=== PATIENT | male | born 1995 | race Caucasian/White ===

== ENCOUNTER 2017-04-18 19:44 | Observation (INO) | payer BC ==
[2017-04-18] MEDS ORDERED: ONDANSETRON 4 MG TAB.RAPDIS PO ONE (20:53)
--- NOTE | 2017-04-18 20:54 | ER Document Report ---
ED Medical Screen (RME) - General Chief Complaint: Abdominal Pain Stated Complaint: ABDOMINAL PAIN Time Seen by Provider: 04/18/17 20:52 Notes: 21-year-old male, chief complaint of abdominal pain in the right side seems to be in both the upper and lower abdomen, worsening since this morning, having sharp pains with developing persistent nausea, states he tried to eat once and vomited. Denies flank pain, fever, or any other symptoms. No past medical history or surgeries. Got back from [place] 2 weeks ago. Denies alcohol. TRAVEL OUTSIDE OF THE [place] IN LAST 30 DAYS: No - Related Data Allergies/Adverse Reactions: No Known Allergies Allergy (Unverified 04/18/17 20:17) Past Medical History Renal/ Medical History: Denies: Hx Peritoneal Dialysis Physical Exam - Vital signs Vitals: Temp Pulse BP Pulse Ox 97.5 F 61 120/77 100 04/18/17 20:17 04/18/17 20:17 04/18/17 20:17 04/18/17 20:17 - Abdominal Tenderness: Tender - tender in both RUQ and RLQ with wincing, limited by sitting exam - Back Back: No: Tender, CVA tenderness Course - Vital Signs Vital signs: Temp Pulse Resp BP Pulse Ox 97.5 F 61 120/77 100 04/18/17 20:17 04/18/17 20:17 04/18/17 20:17 04/18/17 20:17
[2017-04-18 21:37] LABS: APPEARANCE,URINE SLIGHTLY-CLOUDY; BILIRUBIN,URINE NEGATIVE (NEGATIVE); GLUCOSE, URINE NEGATIVE (NEGATIVE); KETONES,URINE 80 mg/dL (NEGATIVE); LEUKOCYTE ESTERASE,URINE NEGATIVE (NEGATIVE); NITRITE,URINE NEGATIVE (NEGATIVE); PROTEIN,URINE 30 mg/dL (NEGATIVE); URINE SPECIFIC GRAVITY 1.029; UROBILINOGEN,URINE NEGATIVE mg/dL (<2.0)
[2017-04-18 22:20] LABS: ALANINE AMINOTRANSFERASE 34 U/L (21-72); ALBUMIN 4.8 g/dL (3.5-5.0); ALKALINE PHOSPHATASE 73 U/L (38-126); ANION GAP 13 (5-19); ASPARTATE AMINO TRANSFERASE 30 U/L (17-59); BILIRUBIN,DIRECT 0.2 mg/dL (0.0-0.4); BILIRUBIN,TOTAL 1.3 mg/dL (0.2-1.3); BLOOD UREA NITROGEN 14 mg/dL (7-20); CALCIUM 9.5 mg/dL (8.4-10.2); CARBON DIOXIDE 22 mmol/L (22-30); CHLORIDE 100 mmol/L (98-107); CREATININE RESULT 0.65 mg/dL (0.52-1.25); GLUCOSE 124 mg/dL (75-110); TOTAL PROTEIN 7.9 g/dL (6.3-8.2)
[2017-04-18 22:21] LABS: ABSOLUTE LYMPHOCYTES (AUTO) 0.8 10^3/uL (0.5-4.7); ABSOLUTE MONOCYTES (AUTO) 0.4 10^3/uL (0.1-1.4); ABSOLUTE NEUT (AUTO) 9.6 10^3/uL (1.7-8.2); BASOPHILS % (AUTO) 0.3 % (0-2); HEMATOCRIT 43.3 % (37.9-51.0); HEMOGLOBIN 14.7 g/dL (13.5-17.0); HGB HCT DIFFERENCE 0.8; LYMPHOCYTES % (AUTO) 7.2 % (13-45); MEAN CORPUSCULAR HEMOGLOBIN 30.6 pg (27.0-33.4); MEAN CORPUSCULAR VOLUME 90 fl (80-97); MONOCYTES % (AUTO) 4.1 % (3-13); RED BLOOD COUNT 4.82 10^6/uL (4.35-5.55); RED CELL DISTRIBUTION WIDTH 12.9 % (11.5-14.0); SEGMENTED NEUTROPHILS % (AUTO) 88.4 % (42-78); WHITE BLOOD COUNT 10.9 10^3/uL (4.0-10.5)
--- NOTE | 2017-04-18 22:44 | ER Document Report ---
ED General - General Chief Complaint: Abdominal Pain Stated Complaint: ABDOMINAL PAIN Time Seen by Provider: 04/18/17 20:52 Notes: Patient is a 21-year-old male without past medical history, no prior surgical history who presents with 16 hours of progressively worsening abdominal pain with associated vomiting. Patient states that earlier this morning he developed generalized abdominal discomfort which he described as a dull, constant, cramping pain. States that over the course of several hours it became more localized to right lower quadrant and now is only located there. He has had multiple episodes of nonbilious emesis today but notes that he has been able to tolerate water. No known sick contacts. He denies any diarrhea. No history of similar symptoms in the past. He has not seen his primary care doctor regarding today's concerns. TRAVEL OUTSIDE OF THE [place] IN LAST 30 DAYS: No - Related Data Allergies/Adverse Reactions: No Known Allergies Allergy (Unverified 04/18/17 20:17) Home Medications: Current Home Medications No Home Medications 04/19/17 [History] Past Medical History - General Information source: Patient - Social History Smoking Status: Never Smoker Frequency of alcohol use: Occasional Drug Abuse: None Lives with: Family Family History: Reviewed & Not Pertinent Patient has suicidal ideation: No Patient has homicidal ideation: No Renal/ Medical History: Denies: Hx Peritoneal Dialysis Surgical Hx: Negative Review of Systems - Review of Systems Notes: Constitutional: Negative for fever. HENT: Negative for sore throat. Eyes: Negative for visual changes. Cardiovascular: Negative for chest pain. Respiratory: Negative for shortness of breath. Gastrointestinal: Positive for abdominal pain and vomiting Genitourinary: Negative for dysuria. Musculoskeletal: Negative for back pain. Skin: Negative for rash. Neurological: Negative for headaches, weakness or numbness. 10 point ROS negative except as marked above and in HPI. Physical Exam - Vital signs Vitals: Temp Pulse BP Pulse Ox 97.5 F 61 120/77 100 04/18/17 20:17 04/18/17 20:17 04/18/17 20:17 04/18/17 20:17 Interpretation: Normal Notes: PHYSICAL EXAMINATION: GENERAL: Well-appearing, well-nourished and in no acute distress. HEAD: Atraumatic, normocephalic. EYES: Pupils equal round and reactive to light, extraocular movements intact, sclera anicteric, conjunctiva are normal. ENT: nares patent, oropharynx clear without exudates. Moist mucous membranes. NECK: Normal range of motion, supple without lymphadenopathy LUNGS: Breath sounds clear to auscultation bilaterally and equal. No wheezes rales or rhonchi. HEART: Regular rate and rhythm without murmurs ABDOMEN: Soft, focal tenderness of the right lower quadrant without rebound or guarding. EXTREMITIES: Normal range of motion, no pitting or edema. No cyanosis. NEUROLOGICAL: No focal neurological deficits. Moves all extremities spontaneously and on command. PSYCH: Normal mood, normal affect. SKIN: Warm, Dry, normal turgor, no rashes or lesions noted. Course - Re-evaluation Re-evalutation: 04/18/17 22:42 Patient presents with generalized abdominal pain that has now become more focal right lower quadrant with associated vomiting Does show some mild right lower quadrant abdominal tenderness but no rebound or guarding. Abdomen is soft, not rigid. Testicular exam is normal without evidence of an acute testicular torsion, epididymitis or orchitis. Laboratories show a mild leukocytosis but are otherwise unremarkable. No significant flank tenderness. Clinical history is not consistent with acute pyelonephritis, nephrolithiasis, bowel perforation , mesenteric ischemia, bowel obstruction. I have a mildly elevated concern for possible acute appendicitis. I discussed proceeding with a CT scan at this time with the patient and he has agreed and verbalized an understanding of radiation exposure risks. 04/19/17 00:11 CT scan does demonstrate findings consistent with acute appendicitis although is not clearly visualized the appendix. However there is a small amount of free fluid in the lower abdomen as well as inflammatory change around the cecum. Patient remains with persistent right lower quadrant pain in the context of the CT scan this makes the diagnosis of acute appendicitis highly probable. I discussed this case with the surgeon precision mechanical instrument maker Dr. Massey who is agreed to admit the patient and taken to the operating room in the morning. He will be started on IV Zosyn, maintenance fluids and has been made n.p.o. - Vital Signs Vital signs: Temp Pulse Resp BP Pulse Ox 97.9 F 60 17 120/71 100 04/19/17 02:47 04/19/17 02:47 04/19/17 02:47 04/19/17 02:47 04/19/17 02:47 - Laboratory Result Diagrams: 04/18/17 22:11 04/18/17 21:50 Laboratory results interpreted by me: 04/18/17 04/18/17 04/18/17 21:07 21:50 22:11 WBC 10.9 H Seg Neutrophils % 88.4 H Lymphocytes % 7.2 L Absolute Neutrophils 9.6 H Sodium 135.0 L Glucose 124 H Urine Protein 30 H Urine Ketones 80 H - Diagnostic Test Radiology reviewed: Reports reviewed Discharge - Discharge Clinical Impression: Acute appendicitis Qualifiers: Acute appendicitis type: with localized peritonitis Qualified Code(s): K35.3 - Acute appendicitis with localized peritonitis Disposition: ADMITTED OBSERVATION Admitting Provider: Surgicalist - [facility] Unit Admitted: Surgical Floor
--- NOTE | 2017-04-18 23:44 | RADIOLOGY REPORT (SQ) ---
EXAM DESCRIPTION: CT ABD/PELVIS WITH IV ONLY COMPLETED DATE/TIME: 04/18/2017 11:16 pm REASON FOR STUDY: eval appendicitis COMPARISON: None. TECHNIQUE: CT scan of the abdomen and pelvis performed using helical scanning technique with dynamic intravenous contrast injection. No oral contrast. Images reviewed with lung, soft tissue, and bone windows. Reconstructed coronal and sagittal MPR images reviewed. Delayed images for evaluation of the urinary system also acquired. All images stored on PACS. All CT scanners at this facility use dose modulation, iterative reconstruction, and/or weight based d osing when appropriate to reduce radiation dose to as low as reasonably achievable (ALARA). [facility]: Dose Right [facility]: CareDose [facility]: Dose Right [facility]: Teradose 4D [facility]: LucidEra CONTRAST TYPE AND DOSE: contrast/concentration: Isovue 370.00 mg/ml; Total Contrast Delivered: 70.0 ml; Total Saline Delivered: 66.0 ml RENAL FUNCTION: GFR > 60. RADIATION DOSE: 10.91. LIMITATIONS: None. FINDINGS: LOWER CHEST: No significant findings. No nodules or infiltrates. LIVER: Normal size. No dilated ducts. Small hepatic cyst. SPLEEN: Normal size. No focal lesions. PANCREAS: No masses. No significant calcifications. No adjacent inflammation or peripancreatic fluid collections. Pancreatic duct not dilated. GALLBLADDER: No identified stones by CT criteria. No inflammatory changes to suggest cholecystitis. ADRENAL GLANDS: No significant masses or asymmetry. RIGHT KIDNEY AND URETER: No solid masses. No significant calcifications. No hydronephrosis or hyd roureter. LEFT KIDNEY AND URETER: No solid masses. No significant calcifications. No hydronephrosis or hydr oureter. AORTA AND VESSELS: No aneurysm. No dissection. Renal arteries, SMA, celiac without stenosis. RETROPERITONEUM: No retroperitoneal adenopathy, hemorrhage or masses. BOWEL AND PERITONEAL CAVITY: Moderate Right lower quadrant inflammatory changes with a small amount o f free fluid. APPENDIX: Not identified. PELVIS: Small amount of free fluid. No mass. Normal bladder. ABDOMINAL WALL: No masses. No hernias. BONES: No significant or acute findings. OTHER: No other significant finding. IMPRESSION: Moderate Right lower quadrant inflammatory changes around the base of the cecum with a s mall amount of free fluid noted. The appendix is not clearly identified. These findings could refle ct acute appendicitis, if there is high clinical suspicion consider surgical consultation. TECHNICAL DOCUMENTATION: JOB ID: [id number] Quality ID # [id number]: Final reports with documentation of one or more dose reduction techniques (e.g., Au tomated exposure control, adjustment of the mA and/or kV according to patient size, use of iterative reconstruction technique) 2010 [employer]- All Rights Reserved
[2017-04-19] MEDS ORDERED: PIPERACILLIN/TAZOBACTAM 3.375 GM VIAL IV ONE
[2017-04-19] MEDS ORDERED: NORMAL SALINE 1000 ML 1,000 ML IV ONE
[2017-04-19] MEDS: MORPHINE SULFATE 10 MG/ML INJ IV PRN ×3 (01:18→06:47)
--- NOTE | 2017-04-19 06:33 | HISTORY AND PHYSICAL E ---
History and Physical NAME: REID CHAN : 1995 AGE: 21Y ADMITTED: 04/19/2017 ROOM: 210 CHIEF COMPLAINT: Right lower quadrant pains. HISTORY OF PRESENT ILLNESS: This is a 21-year-old male who complained of vague epigastric pains when waking up yesterday morning at 8:00 a.m. This was associated with nausea and vomiting. Around 5:00 in the afternoon yesterday, pains localized in the right lower quadrant, and went to the emergency room. He had a CAT scan of the abdomen with IV contrast but no p.o. contrast which showed inflammation around the area of the cecum with fluid in the pelvis, but appendix was not visualized. His white count is slightly elevated at 10.9. PAST HISTORY: Is unremarkable. No previous operations. No medical issues. SOCIAL HISTORY: Denies smoking. Admits to drinking socially. No drug use. FAMILY HISTORY: Noncontributory. REVIEW OF SYSTEMS: As in HPI. He denies any sore throat, fever, chills, headaches, chest pains, shortness of breath, diarrhea, constipation, nor dysuria. Rest of the systems unremarkable. ALLERGIES: No known. PHYSICAL EXAMINATION: GENERAL: Well-developed, well-nourished 21-year-old male, alert and oriented, complaining of right lower quadrant pains. HEENT: Neck is supple, no thyromegaly. LUNGS: Were clear. HEART: Regular sinus rhythm. ABDOMEN: Is soft, with tenderness in the right lower quadrant with rebound. EXTREMITIES: No edema. IMPRESSION: ACUTE APPENDICITIS. PLAN: 1. The patient started on IV antibiotics and hydration. 2. Laparoscopic appendectomy today by Dr. Harper. DICTATING PHYSICIAN: KARISHMA HUGHES M.D. [id number] PHY#: [id number] ID: [id number] JOB#: [id number] ACCT: [id number] cc:NO Brandi FELDER
[2017-04-19] MEDS ORDERED: BUPIVACAINE HCL 0.25 % INJ/PF (2.5 MG/1 ML) 30 ML VIAL ONE (07:19)
[2017-04-19] MEDS ORDERED: ACETAMINOPHEN 100 ML IV ONE (08:29)
[2017-04-19] MEDS ORDERED: FENTANYL CITRATE INJ/PF 250 MCG/5 ML AMPULE ONE (08:29)
[2017-04-19] MEDS ORDERED: MIDAZOLAM 2 MG/2 ML INJ ONE (08:29)
[2017-04-19] MEDS ORDERED: PROPOFOL INJ 200 MG/20 ML VIAL IV ONE (08:29)
[2017-04-19] MEDS ORDERED: MORPHINE SULFATE 10 MG/ML INJ ONE (08:30)
[2017-04-19] MEDS ORDERED: PIPERACILLIN SODIUM/TAZOBACTAM 3.375 GM in NORMAL SALINE 100 ML IV ONE (09:00)
[2017-04-19] MEDS ORDERED: MORPHINE SULFATE 10 MG/ML INJ IV PRN (09:46)
[2017-04-19] MEDS ORDERED: ONDANSETRON HCL INJ/PF 4 MG/2 ML SDV IV PRN (09:46)
--- NOTE | 2017-04-19 09:51 | Operative Report ---
Operative Report DATE OF SURGERY: 04/19/17 PREOPERATIVE DIAGNOSIS: Acute appendicitis POSTOPERATIVE DIAGNOSIS: Same with suppurative appendicitis OPERATION: Laparoscopic appendectomy SURGEON: JULIETTE IVEY ANESTHESIA: GA TISSUE REMOVED OR ALTERED: 1 appendix with contents COMPLICATIONS: None ESTIMATED BLOOD LOSS: 10 cc INTRAOPERATIVE FINDINGS: See below PROCEDURE: The patient was taken to the preop holding area the main operating room where general anesthesia was induced. The patient voided on-call to OR. The abdomen was exposed, prepped and draped in sterile fashion and several laparoscopic appendectomy Surgical plan and surgical timeout conducted. Skin was anesthetized at the supraumbilical area with quarter percent Marcaine. A small curvilinear incision was made at the 12 o'clock position of the umbilicus. Veress needle was inserted into the peritoneal cavity and pneumoperitoneum established. Veress needle was removed, 5 mm ports inserted a flexible scope was inserted. Under direct visualization 2 additional ports placed one 5 mm suprapubic position and a 12 mm in the left lower quadrant. Inspection of peritoneal cavity revealed no evidence of bleeding or visceral injury Inspection peritoneal cavity revealed cloudy yellow green purulent discharge in the pelvis. The appendix was acutely inflamed, with early separation. There was no phlegmon, perforation or fecal contamination. Photos were taken. The appendix was grasped and elevated into the preperitoneal space. The posterior inferior attachments were taken down bluntly. A suitable site for opening of the mesoappendix just adjacent to the base of the appendix was identified and his opening created with a dissector. We then brought onto the field a 45 mm Endo stapler and divided the appendix at its base with a single firing, blue load. The appendix is now suspended solely by the mesial appendix. Second firing of the Endo IDALIA stapler was performed across the mesoappendix thereby freeing up the appendix in its entirety. Staple was removed, and an Endobag placed a 12 mm port. Appendix was placed into the bag and the appendix brought onto the patient's of the pathology permanent analysis. Careful inspection of the staple line showed some bleeding which required clip placement. Once this was controlled, we felt the operation was complete. Sponge and counts correct. The pelvis was irrigated out of the purulent fluid and all ports removed under direct visualization. Peritoneum was evacuated and all wounds closed with 0 Vicryl 3-0 Vicryl benzoin Steri-Strips. Postop procedure well, extubated and taken recovery in stable condition.
[2017-04-19] MEDS ORDERED: NEOSTIGMINE METHYLSULFATE 10 MG/10 ML VIAL ONE (11:45)
[2017-04-19] MEDS ORDERED: LIDOCAINE 2% INJ-PF (20 MG/ML) 10 ML AMPUL ONE (11:45)
[2017-04-19] MEDS ORDERED: METOCLOPRAMIDE HCL INJ/PF 10 MG/2 ML SDV ONE (11:45)
[2017-04-19] MEDS ORDERED: DEXAMETHASONE SOD PHOSPHATE INJ 4 MG/1 ML VIAL ONE (11:45)
[2017-04-19] MEDS ORDERED: SUCCINYLCHOLINE CHLORIDE INJ 200 MG/10 ML VIAL ONE (11:45)
[2017-04-19] MEDS ORDERED: ONDANSETRON HCL INJ/PF 4 MG/2 ML SDV ONE (11:45)
[2017-04-19] MEDS ORDERED: ROCURONIUM BROMIDE INJ 50 MG/5 ML VIAL IV ONE (11:45)
[2017-04-19] MEDS ORDERED: GLYCOPYRROLATE INJ 0.4 MG/2 ML VIAL ONE (11:45)
[2017-04-20 08:45] VITALS: BP 120/71
--- NOTE | 2017-04-20 09:18 | DISCHARGE SUMMARY E ---
Discharge Summary NAME: REID CHAN : 1995 AGE: 21Y ADMITTED: 04/19/2017 DISCHARGED: 04/20/2017 PROCEDURE DONE: Laparoscopic appendectomy for acute appendicitis done by Dr. Harper on 04/19/2017. HOSPITAL COURSE: Patient admitted for about 24 hours of abdominal pain and a CAT scan showed acute appendicitis. Patient underwent laparoscopic appendectomy on 04/19/2017 which he tolerated well. On the day of discharge, patient with much less pain not requiring narcotic pain medication. He was advised to avoid lifting more than 15 pounds for the next week and then gradually increase. He can have a regular diet. Follow up with his primary medical physician since he is not from [place] and likely from [place], [place] and he plans to move there soon and he is just here for a visit. DICTATING PHYSICIAN: KARISHMA HUGHES M.D. [id number] PHY#: [id number] ID: [id number] JOB#: [id number] ACCT: [id number] cc:AARON MELENDEZ MD, M.D, FAUSTINO M.D. FRIANT, IVAN PA >
== END 2017-04-20 10:00 | disposition home or self-care (01) ==
LOC: ER 19:44 → EH 04-19 00:24 → UNDOADMOB 04-19 00:24 → EH 04-19 02:41 → 2N 04-19 02:41
PROC: 0DTJ4ZZ Resection of Appendix, Percutaneous Endoscopic Approach (ICD-10-PCS; principal; 2017-04-19 08:30)
DX: K35.80 Unspecified acute appendicitis (principal)
CPT/HCPCS: 44970; 99285; 96361; 96375; 96365; 36415; 83690; 85025; 80053; 81001; 88304 ×2; 74177; J2250; J3490 ×2; J1100; S0119; J3010; J2765; J2270; J0330; J2405; J7030; J2704; J2543; J0131; 840; G0378